=== PATIENT | female | born 1975 | race Caucasian/White ===

== ENCOUNTER 2019-09-11 23:57 | Emergency (ER) | payer OTHER ==
[~2019-09-11] VITALS: Ht 167.6 cm; Wt 108.9 kg
[2019-09-12 01:17] LABS: INFLUENZA A ANTIGEN Negative (Negative); INFLUENZA B ANTIGEN Negative (Negative)
[2019-09-12] MEDS ORDERED: PROMETH-CODEIN 65 ML PO (01:43)
[2019-09-12 02:01] VITALS: BP 140/68
== END 2019-09-12 02:02 | disposition home or self-care (01) ==
LOC: M.ERS 23:57
PROVIDERS: Emergency Medicine
DX: J06.9 Acute upper respiratory infection, unspecified (principal)